=== PATIENT | female | born 2000 | race Caucasian/White ===

== ENCOUNTER 2023-04-29 00:33 | Emergency (ER) | payer MEDICAID, OTHER ==
[~2023-04-29] VITALS: Ht 167.6 cm; Wt 90.7 kg
[2023-04-29 00:35] VITALS: BP 127/97; PULSE 118; RESP 17; TEMP 98.6; O2SAT 97
[2023-04-29] MEDS ORDERED: NACL 0.9% 1,000 ML IV ONE (01:15)
[2023-04-29] MEDS ORDERED: KETOROLAC 30 MG/ML VIAL IVP ONE (01:15)
[2023-04-29] MEDS ORDERED: PROCHLORPERAZINE 10 MG/2 ML VIAL IVP ONE (01:15)
[2023-04-29 01:20] VITALS: O2SAT 95
[2023-04-29 01:35] VITALS: BP 145/90; PULSE 122; RESP 18; O2SAT 95
[2023-04-29 01:51] LABS: BASOPHILS % (AUTO) 0.1 % (0.0-2.0); EOSINOPHILS % (AUTO) 0.1 % (0.0-4.0); HEMATOCRIT 43.7 % (36-48); HEMOGLOBIN 14.6 g/dL (12.0-16.0); LYMPHOCYTES # (AUTO) 1.3 K/uL (2.5-16.5); LYMPHOCYTES % (AUTO) 8.7 % (20.5-51.1); MEAN CORPUSCULAR HEMOGLOBIN 28 pg (27-31); MEAN CORPUSCULAR HGB CONC 33 g/dL (33-37); MEAN CORPUSCULAR VOLUME 82.2 fL (80-94); MONOCYTES # (AUTO) 0.3 K/uL (0.8-1.0); MONOCYTES % (AUTO) 2.2 % (1.7-9.3); NEUTROPHILS # (AUTO) 13.6 K/uL (1.8-7.7); PLATELET COUNT (AUTO) 304 K/uL (140-450); RED BLOOD CELL COUNT(AUTO) 5.31 MIL/uL (4.20-5.40); RED CELL DISTRIBUTION WIDTH 14.6 % (11.6-13.7); WHITE BLOOD COUNT (AUTO) 15.3 K/uL (4.8-10.8)
[2023-04-29 01:56] LABS: ALBUMIN 4.3 g/dL (3.4-5.0); ANION GAP 17.1 (8-16); CALCIUM 9.7 mg/dL (8.5-10.1); CARBON DIOXIDE 24.8 mmol/L (21-32); CREATININE 0.9 mg/dL (0.6-1.3); POTASSIUM 3.9 mmol/L (3.5-5.1); TOTAL BILIRUBIN 0.5 mg/dL (0.0-1.0); TOTAL PROTEIN, SERUM 9.2 g/dL (6.4-8.2)
[2023-04-29 01:57] LABS: NEUTROPHILS % (AUTO) 88.9 % (42.2-75.2)
[2023-04-29 02:37] LABS: APPEARANCE,URINE CLEAR (CLEAR); BILIRUBIN,URINE NEGATIVE (NEGATIVE); BLOOD, URINE NEGATIVE (NEGATIVE); COLOR,URINE YELLOW (YELLOW); LEUKOCYTE ESTERASE ,URINE NEGATIVE (NEGATIVE); NITRITE, URINE NEGATIVE (NEGATIVE); PROTEIN,URINE TRACE (NEGATIVE); UGLUCOSE NEGATIVE (NEGATIVE); UROBILINOGEN,URINE 0.2 EU/dL (0.2 - 1)
[2023-04-29 02:53] LABS: BACTERIA,URINE 2+ /HPF (None Seen); RBC,URINE NONE SEEN /HPF (0-5); SQUAMOUS EPITHELIAL CELL,UR 20-50 /LPF (0-3 (FEW)); WBC,URINE 0-5 /HPF (0-5)
[2023-04-29] MEDS ORDERED: ONDA-188 PO (03:10)
== END 2023-04-29 03:00 | disposition home or self-care (01) ==
LOC: MED 00:33
DX: R11.2 Nausea with vomiting, unspecified (principal); D72.829 Elevated white blood cell count, unspecified; Z79.899 Other long term (current) drug therapy
CPT/HCPCS: 36415; 80053; 81001; 81025; 83690; 85025; 87086; 96361; 96374; 96375; 99284; J0780; J1885; J7030

== ENCOUNTER 2023-08-12 07:28 | Emergency (ER) | payer OTHER ==
[~2023-08-12] VITALS: Ht 167.6 cm; Wt 90.7 kg
[~2023-08-12 07:28] MED LIST: ONDA-188 PO
[2023-08-12 07:32] VITALS: BP 138/92; PULSE 118; RESP 19; TEMP 98.1; O2SAT 96
[2023-08-12 08:04] VITALS: O2SAT 96
[2023-08-12] MEDS: predniSONE 20 MG TAB PO ONE (08:13)
[2023-08-12] MEDS: ACETAMINOPHEN 325 MG TAB PO ONE (08:13)
[2023-08-12] MEDS: ALBUTEROL 0.083% 2.5 MG/3 ML NEBU INH ONE (08:17)
[2023-08-12] MEDS: IPRATROPIUM 0.02% 0.5 MG/2.5 ML NEBU INH ONE (08:17)
[2023-08-12 08:18] VITALS: PULSE 112; RESP 16; O2SAT 97
[2023-08-12 08:53] LABS: FLU A ANTIGEN negative (NEGATIVE)
[2023-08-12 09:09] LABS: FLU B ANTIGEN POSITIVE (NEGATIVE)
[2023-08-12 09:23] VITALS: BP 138/92; PULSE 112; RESP 16; TEMP 98.1
[2023-08-12] MEDS ORDERED: TAM75 PO (09:24)
[2023-08-12] MEDS ORDERED: ALBU0.0912 IH (09:24)
[2023-08-12] MEDS ORDERED: PRED20TA5 PO (09:24)
[2023-08-12 09:34] VITALS: O2SAT 98
== END 2023-08-12 09:23 | disposition home or self-care (01) ==
LOC: MED 07:28
DX: J45.901 Unspecified asthma with (acute) exacerbation (principal); J10.1 Influenza due to other identified influenza virus with other respiratory manifestations; Z20.822 Contact with and (suspected) exposure to COVID-19; F12.90 Cannabis use, unspecified, uncomplicated; Z79.899 Other long term (current) drug therapy
CPT/HCPCS: 81025; 87426; 87804; 94640; 99285; J7512; J7613; J7644